=== PATIENT | female | born 1940 | race Caucasian/White ===

== ENCOUNTER 2023-05-25 09:56 | Observation (INO) ==
[2023-05-25 10:40] LABS: ABS Basophils 0.1 10^3/uL (0.0-0.1); ABS Eosinophils 0.2 10^3/uL (0.0-0.5); ABS Lymphocytes 1.7 10^3/uL (1.0-4.8); ABS Monocytes 0.6 10^3/uL (0.0-0.9); ABS Neutrophils 5.4 10^3/uL (1.5-7.6); Hematocrit 36.7 % (35-45); Hemoglobin 12.6 g/dL (11.5-14.3); Lymphocyte % 21.5 %; Mean Corpuscular Hgb Conc 34.3 g/dL (31-36); Mean Corpuscular Volume 90.6 fL (80-97); Platelet Count 308 10^3/uL (150-450); Red Blood Count 4.05 10^6/uL (3.63-4.92); Red Cell Distribution Width 12.6 % (12-17); White Blood Count 8.1 10^3/uL (3.8-11.8)
[2023-05-25 10:49] LABS: INR 1.04 (0.83-1.13)
[2023-05-25 11:06] LABS: Albumin/Globulin Ratio 1.7 (1-3); Calcium 8.9 mg/dL (8.6-10.3); Creatinine, Serum 1.51 mg/dL (0.51-0.95); Globulin 2.4 g/dL (2-4); Potassium 4.5 mmol/L (3.5-5.0); Total Bilirubin 0.5 mg/dL (0.2-1.0); Total Protein 6.4 g/dL (6.4-8.9); eGFR CKD-EPI 34.3 (>60)
[2023-05-25 11:57] LABS: High Sensitivity Troponin 1 Hr 77 pg/mL (<15)
[2023-05-25] MEDS: Iodixanol (CONTRAST) 320 MG/ML 100 ML SDV IV ONE (11:59)
[2023-05-25] MEDS: Heparin 5000 UNITS/ML 1 mL VIAL IV SCH (12:52)
[2023-05-25] MEDS: Heparin DRIP 25,000 UNITS BAG 25,000 UNITS/250 ML BAG IV SCH (12:57)
[2023-05-25 13:23] LABS: Creatinine, Serum 1.42 mg/dL (0.51-0.95); eGFR CKD-EPI 36.9 (>60)
[2023-05-26 04:51] LABS: ABS Basophils 0.1 10^3/uL (0.0-0.1); ABS Eosinophils 0.5 10^3/uL (0.0-0.5); ABS Lymphocytes 2.8 10^3/uL (1.0-4.8); ABS Monocytes 0.9 10^3/uL (0.0-0.9); ABS Neutrophils 5.7 10^3/uL (1.5-7.6); ABS Nucleated RBC 0.01 10^3/ul; Eosinophil % 5.4 %; Hematocrit 35.2 % (35-45); Hemoglobin 11.9 g/dL (11.5-14.3); Lymphocyte % 27.3 %; Mean Corpuscular Hemoglobin 30.7 pg (27-33); Mean Corpuscular Hgb Conc 33.7 g/dL (31-36); Mean Platelet Volume 7.3 fL (7.5-11.2); Nucleated Red Blood Cells % 0.1 %/100WBC (0.0-0.8); Platelet Count 293 10^3/uL (150-450); Red Blood Count 3.87 10^6/uL (3.63-4.92); Red Cell Distribution Width 12.9 % (12-17); White Blood Count 10.1 10^3/uL (3.8-11.8)
[2023-05-26 05:49] LABS: Calcium 8.5 mg/dL (8.6-10.3); Creatinine, Serum 1.33 mg/dL (0.51-0.95); Potassium 4.6 mmol/L (3.5-5.0); eGFR CKD-EPI 39.9 (>60)
[2023-05-26 15:10] LABS: Magnesium 2.2 mg/dL (1.9-2.7)
[2023-05-27 05:51] LABS: ABS Basophils 0.2 10^3/uL (0.0-0.1); ABS Eosinophils 0.7 10^3/uL (0.0-0.5); ABS Lymphocytes 2.3 10^3/uL (1.0-4.8); ABS Monocytes 0.7 10^3/uL (0.0-0.9); ABS Neutrophils 5.9 10^3/uL (1.5-7.6); ABS Nucleated RBC 0.01 10^3/ul; Eosinophil % 7.6 %; Hemoglobin 11.5 g/dL (11.5-14.3); Mean Corpuscular Hemoglobin 31.5 pg (27-33); Mean Corpuscular Hgb Conc 34.8 g/dL (31-36); Mean Corpuscular Volume 90.6 fL (80-97); Mean Platelet Volume 6.9 fL (7.5-11.2); Nucleated Red Blood Cells % 0.1 %/100WBC (0.0-0.8); Platelet Count 290 10^3/uL (150-450); Red Blood Count 3.64 10^6/uL (3.63-4.92); Red Cell Distribution Width 12.8 % (12-17); White Blood Count 9.9 10^3/uL (3.8-11.8)
[2023-05-27 07:21] LABS: Calcium 8.3 mg/dL (8.6-10.3); Creatinine, Serum 1.22 mg/dL (0.51-0.95); Magnesium 2.2 mg/dL (1.9-2.7); Potassium 4.3 mmol/L (3.5-5.0); eGFR CKD-EPI 44.3 (>60)
[2023-05-27 10:53] VITALS: BP 92/82
== END 2023-05-27 13:40 | disposition home or self-care (01) ==
LOC: ED 09:56 → EDHOLD 09:56 → SUATTDRO 13:39 → SSU 14:09
PROVIDERS: ADMIT Hospitalist; ATTEND Student in an Organized Health Care Education/Training Program